=== PATIENT | female | born 1985 | race Caucasian/White ===

== ENCOUNTER 2016-12-27 21:33 | Emergency (ER) | payer OTHER ==
[2016-12-27 21:46] VITALS: BP 132/83
[2016-12-27] MEDS ORDERED: Permethrin 5% CREAM* 1 APPLIC TUBE TOPICAL ONE ×2 (21:52→21:56)
--- NOTE | 2016-12-27 21:52 | UC ---
Skin Complaint HPI - HPI Summary HPI Summary: Pt presnets with c/o pruritic rash that began 3 weeks ago. Pt states that it is more itchy at night - History of Current Complaint Hx Obtained From: Patient Hx Last Menstrual Period: NEXPLANON ?: No Onset/Duration: Sudden Onset Timing: Constant Onset Severity: Mild Current Severity: Mild Location: Generalized Character: Pruritus Aggravating: Nothing Alleviating: Nothing Associated Signs & Symptoms: Positive: Rash <Helen Kincaid NP - Last Filed: 12/27/16 21:56> <Charo Anne - Last Filed: 12/30/16 08:13> - History of Current Complaint Chief Complaint: UCSkin Time Seen by Provider: 12/27/16 21:39 Stated Complaint: RASH - Allergy/Home Medications Allergies/Adverse Reactions: Allergies Allergy/AdvReac Type Severity Reaction Status Date / Time Latex Allergy Airway Verified 12/27/16 21:45 Obstruction Review of Systems Constitutional: Negative Skin: Rash Eyes: Negative ENT: Negative Respiratory: Negative Cardiovascular: Negative Gastrointestinal: Negative Genitourinary: Negative Motor: Negative Neurovascular: Negative Musculoskeletal: Negative Neurological: Negative Psychological: Negative All Other Systems Reviewed And Are Negative: Yes <Helen Kincaid NP - Last Filed: 12/27/16 21:56> PMH/Surg Hx/FS Hx/Imm Hx Previously Healthy: Yes - Surgical History Surgical History: None - Family History Known Family History: Positive: Cardiac Disease, Hypertension, Diabetes, Respiratory Disease, Other - RA, ? lupus - Social History Occupation: Employed Full-time Lives: With Family Alcohol Use: None Substance Use Type: None Smoking Status (MU): Never Smoked Tobacco Have You Smoked in the Last Year: No - Immunization History Hx Tetanus, Diphtheria Vaccination: Yes Vaccination Up to Date: Yes <Helen Kincaid NP - Last Filed: 12/27/16 21:56> Physical Exam Triage Information Reviewed: Yes Appearance: Well-Appearing Vital Signs: Initial Vital Signs Temp 98.8 F 12/27/16 21:39 Pulse 86 12/27/16 21:39 Resp 20 12/27/16 21:39 BP 132/83 12/27/16 21:39 Pulse Ox 100 12/27/16 21:39 Eye Exam: Normal Neck exam: Normal Respiratory Exam: Normal Cardiovascular Exam: Normal Musculoskeletal Exam: Normal Neurological Exam: Normal Psychological Exam: Normal Skin Exam: Other Skin: Positive: rashes - prince tracts upper and lower extremities <Helen Kincaid NP - Last Filed: 12/27/16 21:56> Vital Signs: Initial Vital Signs Temp 98.8 F 12/27/16 21:39 Pulse 86 12/27/16 21:39 Resp 20 12/27/16 21:39 BP 132/83 12/27/16 21:39 Pulse Ox 100 12/27/16 21:39 <Charo Anne - Last Filed: 12/30/16 08:13> Course/Dx - Differential Diagnoses - Skin Complaint Differential Diagnoses: Scabies - Diagnoses Provider Diagnoses: scabies <Helen Kincaid NP - Last Filed: 12/27/16 21:56> Discharge <Helen Kincaid NP - Last Filed: 12/27/16 21:56> <Charo Anne - Last Filed: 12/30/16 08:13> - Discharge Plan Condition: Stable Disposition: HOME Patient Education Materials: Scabies (ED) Referrals: Non Staff,Doctor [Medical Doctor] - Attestation Statement User Type: Provider - I was available for consult. This patient was seen by the [facility]. The patient was not presented to, seen by, or examined by me. -Triston <Charo Anne - Last Filed: 12/30/16 08:13>
== END 2016-12-27 22:07 | disposition home or self-care (01) ==
LOC: UCCORT 21:33
DX: B86 Scabies (principal)
CPT/HCPCS: 99212; A9270-GY; G0463

== ENCOUNTER 2017-04-07 16:49 | Emergency (ER) | payer OTHER ==
--- NOTE | 2017-04-07 17:24 | UC ---
Abdominal Pain Male HPI - HPI Summary HPI Summary: 31 YEAR OLD FEMALE PRESENTS WITH SEVERE LLQ PAIN WITH DIFFUSE ABDOMINAL RASH . I AM CONCERNED ABOUT [facility] AND WILL SEND HER TO THE ER. - History of Current Complaint Stated Complaint: SIDE,ABD PAIN Time Seen by Provider: 04/07/17 17:23 Hx Obtained From: Patient Onset/Duration: Lasting Hours Severity Initially: Moderate Severity Currently: Moderate Pain Scale Used: 0-10 Numeric - 8 - Allergies/Home Medications Allergies/Adverse Reactions: Allergies Allergy/AdvReac Type Severity Reaction Status Date / Time Latex Allergy Airway Verified 04/07/17 17:31 Obstruction Home Medications: Home Medications Gabapentin CAP(*) [Neurontin 300 CAP(*)] 300 mg PO TID 04/07/17 [History Confirmed 04/07/17] traMADol TAB* [Ultram*] 25 mg PO Q8H PRN 04/07/17 [History Confirmed 04/07/17] PMH/Surg Hx/FS Hx/Imm Hx Previously Healthy: Yes - Surgical History Surgical History: None - Family History Known Family History: Positive: Cardiac Disease, Hypertension, Diabetes, Respiratory Disease, Other - RA, ? lupus - Social History Alcohol Use: None Substance Use Type: None Smoking Status (MU): Never Smoked Tobacco Have You Smoked in the Last Year: No - Immunization History Hx Tetanus, Diphtheria Vaccination: Yes Vaccination Up to Date: Yes Review of Systems Constitutional: Negative Skin: Rash Eyes: Negative ENT: Negative Respiratory: Negative Cardiovascular: Negative Gastrointestinal: Abdominal Pain Genitourinary: Negative Motor: Negative Neurovascular: Negative Musculoskeletal: Negative Neurological: Negative Psychological: Negative All Other Systems Reviewed And Are Negative: Yes Physical Exam Triage Information Reviewed: Yes Vital Signs Reviewed: Yes Eye Exam: Normal ENT Exam: Normal Dental Exam: Normal Neck exam: Normal Neck: Positive: 1 Respiratory Exam: Normal Cardiovascular Exam: Normal Abdominal Exam: Normal Musculoskeletal Exam: Normal Neurological Exam: Normal Psychological Exam: Normal Skin Exam: Normal Abd Pain Male Course/Dx - Differential Dx/Clinical Impression Provider Diagnoses: LLQ PAIN. DIFFUSE LOWER ABDOMINAL RASH Discharge - Discharge Plan Condition: Stable Disposition: OTHER Discharge Disposition Comment: PATIENT SUGGESTED TO GO TO THE ER Patient Education Materials: Acute Abdominal Pain (ED) Referrals: Jonn FRIED,Angeliot Whaley [Primary Care Provider] - Additional Instructions: PATIENT SUGGESTED TO GO TO ER FOR LLQ
[2017-04-07 17:31] VITALS: BP 115/71
== END 2017-04-07 18:38 ==
LOC: UCCORT 16:49
DX: R10.32 Left lower quadrant pain (principal); R21 Rash and other nonspecific skin eruption; Z32.02 Encounter for pregnancy test, result negative
CPT/HCPCS: 81003; 84702; 87086; 99212; G0463

== ENCOUNTER 2017-08-05 15:46 | Emergency (ER) | payer OTHER ==
[2017-08-05 16:18] VITALS: BP 113/51
--- NOTE | 2017-08-05 17:09 | UC ---
Skin Complaint HPI - HPI Summary HPI Summary: Pt with multiple lesions scattered on arms, legs, abd, back - starts apearing as "zit" but "really itches" Pt states scab overm but still itching on skin Have been appearing x 1 month. Pt denies new environment or products No swelling. Worse after shower. No antihistamine taken. No fever,chills. No cp, sob, abd pain. No n/v/d. no new pets. no new meds. lives with child- no sx. Pt works in factory Pt's medications reviewed this visit - History of Current Complaint Chief Complaint: UCSkin Time Seen by Provider: 08/05/17 16:56 Stated Complaint: SKIN COMPLAINT Hx Obtained From: Patient Hx Last Menstrual Period: DOES NOT HAVE REGULAR PERIODS. HAS THE IMPLAMON ?: No Onset/Duration: Gradual Onset, Lasting Weeks Onset Severity: Moderate Current Severity: Mild Pain Intensity: 0 - Allergy/Home Medications Allergies/Adverse Reactions: Allergies Allergy/AdvReac Type Severity Reaction Status Date / Time latex Allergy Severe throat Verified 08/05/17 16:07 swelling/hives Review of Systems Constitutional: Negative Skin: Rash All Other Systems Reviewed And Are Negative: Yes PMH/Surg Hx/FS Hx/Imm Hx Previously Healthy: Yes - Surgical History Surgical History: Yes Surgery Procedure, Year, and Place: CHOLYCYSTECTOMY - Family History Known Family History: Positive: Cardiac Disease, Hypertension, Diabetes, Respiratory Disease, Other - RA, ? lupus - Social History Occupation: Employed Full-time Lives: With Family Alcohol Use: None Substance Use Type: None Smoking Status (MU): Never Smoked Tobacco Have You Smoked in the Last Year: No - Immunization History Hx Tetanus, Diphtheria Vaccination: Yes Vaccination Up to Date: Yes Physical Exam Triage Information Reviewed: Yes Appearance: Well-Appearing, No Pain Distress, Well-Nourished Vital Signs: Initial Vital Signs Temp 98.8 F 08/05/17 16:08 Pulse 79 08/05/17 16:08 Resp 18 08/05/17 16:08 BP 113/51 08/05/17 16:08 Pulse Ox 100 08/05/17 16:08 Vital Signs Reviewed: Yes Eye Exam: Normal Eyes: Positive: Conjunctiva Clear ENT Exam: Normal ENT: Positive: Normal ENT inspection, Hearing grossly normal, Pharynx normal Dental Exam: Normal Neck exam: Normal Neck: Positive: Supple, Nontender, No Lymphadenopathy Respiratory Exam: Normal Respiratory: Positive: Chest non-tender, Lungs clear, Normal breath sounds, No respiratory distress, No accessory muscle use Cardiovascular Exam: Normal Cardiovascular: Positive: RRR, No Murmur, Pulses Normal Abdominal Exam: Normal Abdomen Description: Positive: Nontender, No Organomegaly, Soft Bowel Sounds: Positive: Present Musculoskeletal Exam: Normal Musculoskeletal: Positive: Strength Intact Neurological Exam: Normal Neurological: Positive: Alert Psychological Exam: Normal Skin: Positive: Other - Pt with approx 15 raised, dry scabbed lesions - holcomb lesions or arms, leg, back chest Does not following clothing line. Not in web spaces no vesicles Course/Dx - Course Course Of Treatment: Pt with multiple scabbed lesions scattered on body, lesions pruritic. Does not appear infection - no concern for scabies. no other in house with same. Will start pred taper. benadryl prn- - precautions given. avoid heat. avoid nsaid. derm referral - Diagnoses Provider Diagnoses: acute rash Discharge - Discharge Plan Condition: Stable Disposition: HOME Prescriptions: diphenhydrAMINE HCl [Benadryl] 25 mg PO Q8HR PRN #15 capsule PRN Reason: Itching Hydrocortisone 0.5% CM(NF) [Hydrocortisone 0.5% CREAM(NF)] 1 applic TOPICAL BID PRN #1 applic PRN Reason: Itching predniSONE TAB* [Deltasone TAB*] 20 mg PO DAILY #20 tab Patient Education Materials: Acute Rash (ED) Forms: *Work Release Referrals: Malcolm Brown MD [Medical Doctor] - Angelito Rust [Primary Care Provider] - Additional Instructions: The doctor that evaluated you today does not think your rash is contagious or related to scabies. It is unclear what is causing it To treat your symptoms, take prednisone as prescribed exactly until Okay to take Benadryl (diphenydramine) for itching. This medication may cause drowsiness - do not drive, operate machinery or drink alcohol while taking this medciation Avoid getting over heated - hot showers, exercises Avoid Motrin, advil, Aleve, Naprosyn for 3-4 days - contact the net solutions architect (bark skinner) to schedule a follow-up appointment
== END 2017-08-05 17:51 | disposition home or self-care (01) ==
LOC: UCCORT 15:46
DX: R21 Rash and other nonspecific skin eruption (principal); Z91.040 Latex allergy status
CPT/HCPCS: 81003; 99212; G0463

== ENCOUNTER 2018-01-26 22:25 | Emergency (ER) | payer BC, OTHER ==
[2018-01-27] MEDS ORDERED: Ketorolac INJ* 60 MG/2 ML VIAL IM ONE (00:40)
--- NOTE | 2018-01-27 00:46 | ED ---
Abdominal Pain/Female - HPI Summary HPI Summary: A 32 y/o female presents to ED c/o left-sided abdominal pain reaching 7/10 in severity. As per triage, "Pt states that she has left sided abd. pain that is worse with movement or coughing. Pt also c/o swollen ankles bilaterally and some toe pain. Pt concerned that it might be STD related". According to the patient, she has been experiencing sharp left sided abdominal pain when completing routine activities for the past 2 weeks. She noted nothing different in her schedule recently, however she does work 18 hours a day. Patient does not get period anymore. - History of Current Complaint Chief Complaint: EDGeneral Stated Complaint: LT FLANK/BACK PAIN Time Seen by Provider: 01/27/18 00:27 Hx Obtained From: Patient Hx Last Menstrual Period: DOES NOT HAVE REGULAR PERIODS. HAS THE IMPLAMON Onset/Duration: Sudden Onset, Lasting Weeks, Still Present Timing: Constant Severity Initially: Moderate Severity Currently: Moderate Pain Intensity: 7 Pain Scale Used: 0-10 Numeric Location: Other - Left sided Radiates: No Character: Sharp Aggravating Factor(s): Movement Alleviating Factor(s): Nothing Associated Signs and Symptoms: Positive: Negative Allergies/Adverse Reactions: Allergies Allergy/AdvReac Type Severity Reaction Status Date / Time latex Allergy Severe throat Verified 01/26/18 22:32 swelling/hives PMH/Surg Hx/FS Hx/Imm Hx Endocrine/Hematology History: Denies: Hx Diabetes Cardiovascular History: Denies: Hx Hypertension Respiratory History: Denies: Hx Asthma - Surgical History Surgery Procedure, Year, and Place: CHOLYCYSTECTOMY Infectious Disease History: No Infectious Disease History: Denies: Traveled Outside the [place] in Last 30 Days - Family History Known Family History: Positive: Cardiac Disease, Hypertension, Diabetes, Respiratory Disease, Other - RA, ? lupus - Social History Alcohol Use: None Substance Use Type: Reports: None Hx Tobacco Use: No Smoking Status (MU): Never Smoked Tobacco Have You Smoked in the Last Year: No Review of Systems Negative: Fever Positive: Abdominal Pain All Other Systems Reviewed And Are Negative: Yes Physical Exam - Summary Physical Exam Summary: VITAL SIGNS: Reviewed. GENERAL: Patient is a well-developed and nourished female who is lying comfortable in the stretcher. Patient is not in any acute respiratory distress. HEAD AND FACE: No signs of trauma. No ecchymosis, hematomas or skull depressions. No sinus tenderness. EYES: PERRLA, EOMI x 2, No injected conjunctiva, no nystagmus. EARS: Hearing grossly intact. Ear canals and tympanic membranes are within normal limits. MOUTH: Oropharynx within normal limits. NECK: Supple, trachea is midline, no adenopathy, no JVD, no carotid bruit, no c- spine tenderness, neck with full ROM. CHEST: Symmetric, tenderness in lower chest wall. LUNGS: Clear to auscultation bilaterally. No wheezing or crackles. CVS: Regular rate and rhythm, S1 and S2 present, no murmurs or gallops appreciated. ABDOMEN: Soft, non-tender. No signs of distention. No rebound no guarding, and no masses palpated. Bowel sounds are normal. EXTREMITIES: FROM in all major joints, no edema, no cyanosis or clubbing. NEURO: Alert and oriented x 3. No acute neurological deficits. Speech is normal and follows commands. SKIN: Dry and warm Triage Information Reviewed: Yes Vital Signs On Initial Exam: Initial Vitals Temp Pulse Resp BP Pulse Ox 98.7 F 91 20 120/77 99 01/26/18 22:28 01/26/18 22:28 01/26/18 22:28 01/26/18 22:28 01/26/18 22:28 Vital Signs Reviewed: Yes Diagnostics - Vital Signs Vital Signs Temp Pulse Resp BP Pulse Ox 01/26/18 22:28 98.7 F 91 20 120/77 99 - Laboratory Result Diagrams: 01/27/18 02:04 01/27/18 02:04 Lab Statement: Any lab studies that have been ordered have been reviewed, and results considered in the medical decision making process. - Radiology CXR Radiology Interpretation Completed By: ED Physician - No acute process. Pending official report. - CT CT A/P CT Interpretation Completed By: Radiologist - No acute findings. ED PHYSICIAN REVIEWED THIS RADIOLOGY REPORT. Abdominal Pain Fem Course/Dx - Course Course Of Treatment: A 32 y/o female presents to ED c/o left-sided abdominal pain reaching 7/10 in severity. A CXR revealed no acute process. A CT A/P reveal no acute findings. In the ED course, the patient recieved Bactrim and Toradol. Patient will be discharged with a diagnosis of UTI. Patient is to follow up with PCP in 1-2 days. Patient is agreeable with this plan. - Diagnoses Provider Diagnoses: UTI (urinary tract infection) Discharge - Sign-Out/Discharge Documenting (check all that apply): Patient Departure - DISCHARGE - Discharge Plan Condition: Stable Disposition: HOME Prescriptions: Sulfamethox/Trimethoprim DS* [Bactrim DS 800/160 TAB*] 1 tab PO BID #14 tab Patient Education Materials: Urinary Tract Infection in Women (ED) Forms: *Work Release Referrals: Angelito Rust [Primary Care Provider] - 2 Days Additional Instructions: FOLLOW UP WITH PRIMARY CARE PHYSICIAN IN 1-2 DAYS. RETURN TO ED FOR ANY NEW OR WORSENING SYMPTOMS. - Attestation Statements Document Initiated by Scribe: Yes Documenting Scribe: Misael Cralin Provider For Whom Scribe is Documenting (Include Credential): Florencio Camargo Attestation: Misael Yoder, scribed for Fang Calderon on 01/27/18 at 0355.
[2018-01-27 01:16] LABS: INR 1.08 (0.77-1.02)
[2018-01-27 02:07] LABS: Urine Appearance Cloudy; Urine Blood 1+ (Negative); Urine Color Yellow; Urine Ketones Trace (Negative); Urine Protein Negative (Negative); Urine Red Blood Cell 3+(>10/hpf) (Absent); Urine Specific Gravity 1.019 (1.010-1.030); Urine Urobilinogen Negative (Negative); Urine White Blood Cell 3+(>20/hpf) (Absent)
[2018-01-27 02:11] LABS: ABS Basophils 0.1 10^3/ul (0-0.2); ABS Eosinophils 0.2 10^3/ul (0-0.6); ABS Lymphocytes 3.8 10^3/ul (1.0-4.8); ABS Monocytes 0.7 10^3/ul (0-0.8); ABS Neutrophils 6.8 10^3/ul (1.5-7.7); ABS Nucleated RBC 0 10^3/ul; Eosinophil % 1.8 % (0-6); Hematocrit 39 % (35-47); Hemoglobin 13.2 g/dl (12.0-16.0); Lymphocyte % 32.5 % (25-47); Mean Corpuscular HGB Conc 34 g/dl (31-36); Mean Corpuscular Hemoglobin 30 pg (27-31); Mean Corpuscular Volume 88 fL (80-97); Nucleated Red Blood Cells % 0.1; Platelet Count 273 10^3/ul (150-450); Red Blood Count 4.42 10^6/ul (4.00-5.40); Red Cell Distribution Width 13 % (10.5-15); White Blood Count 11.6 10^3/ul (3.5-10.8)
[2018-01-27 02:27] LABS: EGFR Non-African American 93.6 (>60)
--- NOTE | 2018-01-27 02:45 | RAD ---
EXAM: CT Abdomen and Pelvis Without Intravenous Contrast CLINICAL HISTORY: 32 years old, female; Pain; Abdominal pain; Generalized; Additional info: Abd pain, body aches, swelling in ankles TECHNIQUE: Axial computed tomography images of the abdomen and pelvis without intravenous contrast. All CT scans at this facility use at least one of these dose optimization techniques: automated exposure control; mA and/or kV adjustment per patient size (includes targeted exams where dose is matched to clinical indication); or iterative reconstruction. Coronal and sagittal reformatted images were created and reviewed. COMPARISON: No relevant prior studies available. FINDINGS: Lung bases: Linear opacities look in the lung bases which may represent areas of atelectasis. ABDOMEN: Liver: Liver is of normal size and appearance. No focal hepatic lesion. Gallbladder and bile ducts: Cholecystectomy. No dilatation pancreatic duct. Pancreas: Unremarkable. No ductal dilation. Spleen: Unremarkable. No splenomegaly. Adrenals: Unremarkable. No mass. Kidneys and ureters: Unremarkable. No obstructing stones. No hydronephrosis. Stomach and bowel: No bowel obstruction. Few colonic diverticula. No evidence of acute diverticulitis. No mucosal thickening. PELVIS: Appendix: The appendix is visualized and is normal in appearance. Bladder: Unremarkable. No stones. Reproductive: Unremarkable as visualized. ABDOMEN and PELVIS: Intraperitoneal space: No free abdominal fluid or air. Bones/joints: No acute fracture. No dislocation. Soft tissues: Unremarkable. Vasculature: Unremarkable. No abdominal aortic aneurysm. Lymph nodes: Unremarkable. No enlarged lymph nodes. IMPRESSION: No acute findings.
[2018-01-27] MEDS ORDERED: Sulfamethox/Trimethoprim DS 800/160* TAB PO ONE (02:50)
[2018-01-27 03:53] VITALS: BP 127/74
--- NOTE | 2018-01-27 07:58 | RAD ---
HISTORY: CP COMPARISONS: December 28, 2015 VIEWS: 1: frontal portable view of the chest at 1:03 AM FINDINGS: LINES AND TUBES: None. CARDIOMEDIASTINAL SILHOUETTE: The cardiomediastinal silhouette is normal for portable technique. PLEURA: The costophrenic angles are sharp. No pleural abnormalities are noted. LUNG PARENCHYMA: The lungs are clear. ABDOMEN: The upper abdomen is clear. There is no subphrenic gas. BONES AND SOFT TISSUES: No bone or soft tissue abnormalities are noted. IMPRESSION: NO ACTIVE CARDIOPULMONARY DISEASE. R0
--- NOTE | 2018-01-29 07:19 | PN ---
Progress Note - Progress Note Date of Service: 01/27/18 Note: Pt. seen in ER / and dx with UTI. She was started on Bactrim. U/A culture today growing staphylococcus saprophyticus that is presumptively susceptible to bactrim. No change in treatment needed at this time.
== END 2018-01-27 03:51 | disposition home or self-care (01) ==
LOC: ED 22:25
DX: N39.0 Urinary tract infection, site not specified (principal); B95.7 Other staphylococcus as the cause of diseases classified elsewhere; Z90.49 Acquired absence of other specified parts of digestive tract; Z91.040 Latex allergy status
CPT/HCPCS: 36415; 71045; 74176; 80053; 81003; 81015; 82553; 83735; 84484; 84702; 85025; 85379; 85610; 85730; 87077; 87086; 96372; 99283; A9270-GY; J1885

== ENCOUNTER 2018-09-12 21:16 | Emergency (ER) | payer SELFPAY ==
--- NOTE | 2018-09-12 22:54 | ED ---
Abdominal Pain/Female - HPI Summary HPI Summary: Pt is a 32 y/o F presenting to the ED with a chief complaint of abd pain in the RLQ that radiates to her back, onset about 1.5 weeks ago. She states her significant other has been unfaithful and that she wants to be tested for all possible STIs. She also reports a tick bite on her L-sided face that she would like to be tested for Lyme for. She denies vaginal bleeding or draining, fevers , and she does not get her period due to her BC. She reports some smell in her genital area as well as R-sided abd pain, back pain, and swollen ankles. - History of Current Complaint Chief Complaint: EDYeneze Stated Complaint: REALLY BAD SHARP PAINS IN MY RIGHT SIDE PER PT Time Seen by Provider: 09/12/18 22:44 Hx Obtained From: Patient Hx Last Menstrual Period: DOES NOT HAVE REGULAR PERIODS. HAS THE IMPLAMON Onset/Duration: Sudden Onset, Lasting Days, Still Present Timing: Days Severity Initially: Moderate Severity Currently: Moderate Pain Intensity: 7 Pain Scale Used: 0-10 Numeric Location: Discrete At: RUQ, Discrete At: RLQ Radiates: Yes Radiates to: Back Character: Sharp Aggravating Factor(s): Nothing Alleviating Factor(s): Nothing Associated Signs and Symptoms: Positive: Back Pain, Other: - abd pain, some smell in genital area, ankle edema. Negative: Fever, Urinary Symptoms, Vaginal Bleeding Allergies/Adverse Reactions: Allergies Allergy/AdvReac Type Severity Reaction Status Date / Time latex Allergy Severe throat Verified 09/12/18 21:19 swelling/hives Home Medications: Home Medications Gabapentin 600 mg PO BEDTIME 09/12/18 [History Confirmed 09/12/18] PMH/Surg Hx/FS Hx/Imm Hx Previously Healthy: Yes Endocrine/Hematology History: Denies: Hx Diabetes Cardiovascular History: Denies: Hx Hypertension Respiratory History: Denies: Hx Asthma - Surgical History Surgery Procedure, Year, and Place: CHOLYCYSTECTOMY Infectious Disease History: No Infectious Disease History: Denies: Traveled Outside the [place] in Last 30 Days - Family History Known Family History: Positive: Cardiac Disease, Hypertension, Diabetes, Respiratory Disease, Other - RA, ? lupus - Social History Alcohol Use: None Hx Substance Use: No Substance Use Type: Reports: None Hx Tobacco Use: No Smoking Status (MU): Former Smoker Have You Smoked in the Last Year: No Review of Systems Negative: Fever Positive: Abdominal Pain Genitourinary: Negative - vaginal bleeding Positive: other - abnml smell. Negative: discharge Positive: Myalgia - back pain, Edema All Other Systems Reviewed And Are Negative: Yes Physical Exam - Summary Physical Exam Summary: Appearance: Well-appearing, Well-nourished, lying in bed comfortably Skin: Warm, dry, no obvious rash Eyes: sclera anicteric, no conjunctival pallor ENT: mucous membranes moist, pharynx appears normal Neck: Supple, nontender Respiratory: Clear to auscultation, no signs of respiratory distress Cardiovascular: Normal S1, S2. No murmurs. Normal distal pulses in tibial and radial bilaterally. Abdomen: Soft, nontender, normal active bowel sounds present Musculoskeletal: Normal, Strength/ROM Intact Neurological: A&Ox3, awake and alert, mentation is normal, speech is fluent and appropriate Psychiatric: affect is normal, does not appear anxious or depressed Triage Information Reviewed: Yes Vital Signs On Initial Exam: Initial Vitals Temp Pulse Resp BP Pulse Ox 97.7 F 98 16 116/81 98 09/12/18 21:17 09/12/18 21:17 09/12/18 21:17 09/12/18 21:17 09/12/18 21:17 Vital Signs Reviewed: Yes Diagnostics - Vital Signs Vital Signs Temp Pulse Resp BP Pulse Ox 09/12/18 21:17 97.7 F 98 16 116/81 98 - Laboratory Lab Statement: Any lab studies that have been ordered have been reviewed, and results considered in the medical decision making process. Abdominal Pain Fem Course/Dx - Course Course Of Treatment: Pt is a 32 y/o F presenting to the ED with a chief complaint of abd pain in the RLQ that radiates to her back, onset about 1.5 weeks ago. She states her significant other has been unfaithful and that she wants to be tested for all possible STIs. She would also like to be tested for Lyme disease due to recent tick bite on her L-sided face. She denies vaginal bleeding or draining, fevers, and she does not get her period due to her BC. She reports some smell in her genital area as well as R-sided abd pain, back pain, and edema in her ankles. She is currently A0, and not presently . She will be d/c'ed with a dx of UTI, and the pt is agreeable with this plan. - Diagnoses Provider Diagnoses: UTI (urinary tract infection) Discharge - Sign-Out/Discharge Documenting (check all that apply): Patient Departure Patient Received Moderate/Deep Sedation with Procedure: No - Discharge Plan Condition: Good Disposition: HOME Prescriptions: Sulfamethox/Trimethoprim DS* [Bactrim DS 800/160 TAB*] 1 tab PO BID #14 tab Patient Education Materials: Sexually Transmitted Diseases (ED), Condom Use (ED ), Urinary Tract Infection in Women (ED) Referrals: Angelito Rust [Primary Care Provider] - 1 Week Additional Instructions: The urinalysis is suggestive of a UTI, so I am starting you on antibiotics until we can get a culture back. - Billing Disposition and Condition Condition: GOOD Disposition: Home - Attestation Statements Document Initiated by Scribe: Yes Documenting Scribe: Nedra Coe Provider For Whom Mary Jo is Documenting (Include Credential): Bacilio Monterroso MD. Scribe Attestation: Nedra Yoder, scrarmindaed for Bacilio Monterroso MD. on 09/13/18 at 0556. Scribe Documentation Reviewed: Yes Provider Attestation: The documentation as recorded by the Nedra barfield accurately reflects the service I personally performed and the decisions made by , Bacilio Monterroso MD. Status of Scribe Document: Viewed
[2018-09-13 00:09] LABS: Urine Appearance Cloudy; Urine Bacteria 2+ (Absent); Urine Bilirubin Negative (Negative); Urine Blood 1+ (Negative); Urine Color Amber; Urine Glucose Negative (Negative); Urine Ketones Negative (Negative); Urine Nitrite Negative (Negative); Urine Protein Negative (Negative); Urine Red Blood Cell 2+(6-10/hpf) (Absent); Urine Specific Gravity 1.028 (1.010-1.030); Urine Squamous Epithelial Cell Present (Absent); Urine Urobilinogen Negative (Negative); Urine White Blood Cell 1+(6-10/hpf) (Absent)
[2018-09-13] MEDS ORDERED: Sulfamethox/Trimethoprim DS 800/160* TAB PO ONE (02:04)
[2018-09-13 02:40] VITALS: BP 0/0
--- NOTE | 2018-09-15 06:48 | PN ---
Progress Note - Progress Note Date of Service: 09/12/18 Note: Urine culture preliminary e coli 100,000 Patient was placed on Bactrim prior to discharge We will await sensitivities
== END 2018-09-13 02:38 | disposition home or self-care (01) ==
LOC: ED 21:16
DX: N39.0 Urinary tract infection, site not specified (principal); Z91.040 Latex allergy status; Z90.49 Acquired absence of other specified parts of digestive tract; Z87.891 Personal history of nicotine dependence; Z20.2 Contact with and (suspected) exposure to infections with a predominantly sexual mode of transmission
CPT/HCPCS: 36415; 81003; 81015; 84702; 87077; 87086; 87186; 87389; 99284; A9270-GY; G0475